=== PATIENT | male | born 1945 | race Caucasian/White ===

== ENCOUNTER 2023-10-31 13:39 | Emergency (ER) | payer MEDICARE, SELFPAY ==
--- NOTE | ~2023-10-31 | CT_ITS ---
EXAMINATION: CT ANGIOGRAM HEAD CT ANGIOGRAM NECK CLINICAL INFORMATION: r sided facial swelling/pain COMPARISON: None. TECHNIQUE: Test bolus sequences followed by intravenous administration 70 mL of Omnipaque 350. Helical imaging was performed in the axial plane from the aortic arch to the skull vertex. Delayed postcontrast imaging of the head was also performed. The data was processed at the mining engineering technologist's workstation for generation of MIP sequences. Angled MIPs and volume rendered reformatted images were also generated at an offline 3D workstation. Stenoses are assessed in accordance with Simms et al. Quantification of Carotid Stenosis on CT Angiography. AJR 2006. 27(1):13-19. This CT examination was performed using dose optimization techniques as appropriate, variously including the following: *Automated exposure control *Adjustment of mA and/or kV according to patient size (this includes techniques or standardized protocols for targeted exams where dose is matched to indication/reason for exam; i.e. extremities or head) *Use of iterative reconstruction technique DLP: 2432 mGy-cm FINDINGS: CT HEAD: The ventricles and sulci are normal in size and configuration without significant volume loss or hydrocephalus. There is no abnormal attenuation within the brain parenchyma. No territorial loss of gomez-white differentiation. No acute intracranial hemorrhage or extra-axial fluid collection. No mass lesion, significant mass effect, or herniation pattern. No pathologic intra-axial enhancement or regional oligemia. Bilateral lens replacements with subluxation of the left-sided lens replacement, which is displaced posteriorly (image 61, series 20). Bilateral scleral jaylin in place. Trace paranasal sinus mucosal thickening with small retention cyst in the right maxillary sinus. Single opacified right mastoid air cell. Canalis basilaris medianus, a benign notochordal remnant. CTA HEAD: No hemodynamically significant stenosis or occlusion in the anterior or posterior circulation. Mild calcific plaque along the bilateral carotid siphons without stenosis. 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 No high flow vascular malformations. Timing of the contrast bolus allows assessment of the major dural venous sinuses, which all opacify normally CTA NECK: Motion artifact significantly limits diagnostic assessment. Classic 3 vessel branching pattern of the aortic arch. Minimal calcific atherosclerotic plaque of the aortic arch. Origins of the great vessels are widely patent. The common carotid arteries are widely patent. Calcific plaque at the carotid bifurcations without stenosis. The internal carotid arteries are widely patent with tortuosity of the mid left cervical ICA. The right vertebral artery is dominant. The right vertebral artery is widely patent, including its origin. There is asymmetric soft tissue thickening along the course of the left vertebral artery from its origin and along the V1 segment with associated mild luminal narrowing, raising the possibility of arterial dissection with intramural hematoma. Focal ectasia with possible anteriorly projecting pseudoaneurysm of the V2 segment at the level of C5, which is not diagnostically assessed due to motion. The remainder of the right vertebral artery is widely patent. CT NECK: Asymmetric enlargement and heterogeneity of the right thyroid gland with multiple nodules versus heterogeneous nodule, measuring approximately 3.5 cm in craniocaudal dimension, for which further evaluation with thyroid ultrasound is advised. Cervical spondylosis. 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 CT/CT angio head neck IMPRESSION: Motion artifact significantly limits diagnostic assessment of the cervical arterial vasculature. 1. No acute intracranial findings. No soft tissue swelling or mass in the right facial soft tissues. 2. No acute arterial occlusion or hemodynamically significant stenosis within the head or neck. 3. Asymmetric soft tissue thickening along the course of the left vertebral artery from its origin and along the V1 segment with associated mild luminal narrowing, raising the possibility of arterial dissection with intramural hematoma. Focal ectasia with possible anteriorly projecting pseudoaneurysm of the V2 segment at the level of C5, which is not diagnostically assessed due to motion. Consider further evaluation with T1-weighted fat-saturated imaging of the neck. This critical result was discussed with BRANDON Suazo at 6:20pm on 10/31/2023 and it was ascertained that the content and urgency of the report was understood at the time of direct communication. 4. 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 5. Bilateral lens replacements with subluxation of the left-sided lens replacement, which is displaced posteriorly (image 61, series 20). 6. Asymmetric enlargement and heterogeneity of the right thyroid gland with multiple nodules versus heterogeneous nodule, measuring approximately 3.5 cm in craniocaudal dimension, for which further evaluation with thyroid ultrasound is advised. Electronically signed by: Emilee Narayan MD 10/31/2023 06:24 PM EDT RP
[2023-10-31 13:51] VITALS: BP 145/102; PULSE 73; RESP 20; TEMP 36.6; O2SAT 99; BMI 34.7
--- NOTE | 2023-10-31 13:51 | ED_ITS ---
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 Patient states that about 1 week ago he noticed a pain behind his right ear that radiates down into his neck. He states that he did start lifting weights and was unsure if he strained muscles in his neck. He states that he went to an urgent care yesterday and was told that this could be the start of an infection or could be a strain of the muscles. He states that he awoke this morning and felt swelling in his right side of his face and decided to come to the emergency room for imaging. He denies any fevers, chills, chest pain, shortness of breath, abdominal pain, nausea, vomiting or diarrhea. No headaches, dizziness or blurred vision. No other complaints or concerns at this time. MD complaint: Neck pain Onset (ago): week(s) Location: neck Radiation: non-radiation Severity: moderate Quality: aching Pain Consistency: constant Relieving factors: none Exacerbating factors: none Associated symptoms: denies other symptoms Treatments prior to arrival: none Related Data Allergies Allergy/AdvReac Type Severity Reaction Status Date / Time Iodinated Contrast Media Allergy Unknown HIVES Verified 10/31/23 13:56 [IV Dye, Iodine Containing] Penicillins Allergy Unknown UNKNOWN Verified 10/31/23 13:56 environmental Allergy Unknown Itchy Eyes Uncoded 10/31/23 13:56 IVP dye Allergy Unknown Hives Uncoded 10/31/23 13:56 penicillin Allergy Unknown Unknown Uncoded 10/31/23 13:56 Review of Systems 2 Review of Systems: Yes all other systems are reviewed and are negative Constitutional: Constitutional: Reports as per [facility] Past Medical History Attestation statement: The following information was validated with the patient. Social History Social History Advance Directives: Yes Advance Directives Information Provided: Yes Advance Directives on File: No Do you have a plan to hurt others: No Plan Physical Exam ED Vital Signs: Vital Signs - 24 hr 10/31/23 13:51 10/31/23 14:00 10/31/23 19:05 Temperature 97.8 F 97.7 F 98.0 F Pulse Rate 73 79 66 Respiratory Rate 20 18 18 Blood Pressure 145/102 H 132/100 H 145/88 H Pulse Oximetry 99 99 Oxygen Delivery Method Room Air Room Air 10/31/23 20:33 Temperature 98.3 F Pulse Rate 66 Respiratory Rate 16 Blood Pressure 145/108 H Pulse Oximetry Oxygen Delivery Method BMI result Body Mass Index 34.7 Const General: cooperative, comfortable and no acute distress Orientation/consciousness: patient oriented x3 Limitations: no limitations HENMT Other: No overlying rashes, no herpetic zoster rashes within the ear canal. TM is intact. Head: Yes normal to inspection, Yes normocephalic and Yes atraumatic Ears: hearing grossly normal bilaterally and TM's normal bilaterally General nose exam: Normal external nose present Face and sinus: Yes normal facial exam Mouth: Normal oral and palatal mucosa present, oropharynx normal and moist mucous membranes Throat: Yes posterior oropharynx normal, Yes tonsils normal and Yes uvula midline Eyes Other: Left eye, with haziness to the entire eye, patient has a history of glaucoma General: appearance normal, both eyes and all related structures Eyelids: Yes eyelids normal Conjunctivae: conjunctivae normal Sclerae: sclerae normal Pupils: Equal, round and reactive pupils present EOM: EOMs intact bilaterally Neck Other: Patient has tenderness to palpation just posterior to the right lobulus auriculae. There is no mastoid tenderness, erythema, fluctuance or warmth. He does have tenderness palpation extending down into his right sternocleidomastoid region. No overlying skin changes or warmth. Neck: Yes normal visual inspection Lymphatic: no lymphadenopathy noted Chest Chest palpation & inspection: normal inspection of the chest Resp Effort & Inspection: normal respiratory effort and able to speak in complete sentences Auscultation: clear to auscultation bilaterally, no crackles, no rales, no rhonchi and no wheezes Cardio Rate: regular rate Rhythm: regular rhythm Heart sounds: S1 normal heart sound present and S2 normal heart sound present GI Inspection: Yes normal to inspection Skin General skin exam: no rashes or lesions noted Trauma: no lacerations or abrasions Wounds: no wounds Neuro General: patient oriented x3 and moves all extremities Cranial nerves: Yes CN's II-XII intact bilaterally and Yes Equal, round and reactive pupils present Cognition (Neuro): normal cognition Gait exam (Neuro): Normal gait present Motor exam (neuro): 5/5 motor strength present throughout and Pronator motor function not present Extrem General: Yes normal to inspection Right upper extremity: normal to inspection Left upper extremity: normal to inspection Right lower extremity: normal to inspection Left lower extremity: normal to inspection Course Course Course Narrative: This is a Rapid Medical Examination (RME) performed by Kerri Marcos PA-C in triage. Full HPI, ROS, assessment and treatment plan per primary provider in the Main ED. 77 yo male here for eval of pain behind right ear, now traveling down right neck x1 wk. evaluated at for this, told he pulled a muscle. woke up today with swelling to right cheek. denies fever/chills, rash. +noted swelling to right cheek. right EAC and TM. no trismus. Plan: basic labs, +/- imaging per primary provider Reevaluation(s) Reevaluation #1: Received phone call from [facility] the CTA of no acute intracranial findings. There is no soft tissue swelling or mass in the right facial soft tissues. There is no acute arterial occlusion or hemodynamically significant stenosis within the head or neck. They did see asymmetric soft tissue thickening along the course of the left vertebral artery from its origin along the V1 segment with association mild luminal narrowing raising the possibility of arterial dissection with intramural hematoma. They considered further evaluation with T1 weighted fat saturated imaging of the neck. 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 There is asymmetric enlargement of the right thyroid gland with multiple nodules. Thyroid ultrasound advised. I discussed these findings with my attending physician, Dr. Sierra in great length. Given patient's symptoms are on the right, the findings on the CTA are incidental findings and there no further additional images or workup needed at this time. He is fully neurologically intact without any deficits. His only symptom he is experiencing is right-sided neck pain, he has no pain in the left side. The treatment for a dissection is anticoagulation which he is already on due to the atrial fibrillation. He is currently on Eliquis. I discussed this in great length with the patient. He understands. Given the right thyroid nodules, I advised patient to also follow-up with his primary care physician for further ultrasound and evaluation. Time: 18:25 Reevaluation #2: Second troponin was negative, discussed workup with patient and at bedside. They understand and agree with plan. All questions answered. Patient stable for discharge Time: 20:39 Consultations Time: 18:25 Medications Administered Discontinued Medications Generic Name Dose Route Start Last Admin Trade Name Trish PRN Reason Stop Dose Admin Diphenhydramine HCl 50 mg 10/31/23 16:20 10/31/23 16:28 Diphenhydramine Hcl 50 Mg/Ml Vial IVPUSH 10/31/23 16:21 50 mg ONCE ONE Administration Sodium Chloride 1,000 mls @ 999 mls/hr 10/31/23 15:43 10/31/23 17:00 Ns IV 10/31/23 16:43 Infused .Q1H1M ONE Infusion Iohexol 100 ml 10/31/23 17:26 10/31/23 17:27 Iohexol 350 Mg/Ml 100 Ml Infus..Btl IV 10/31/23 17:27 70 ml ONCE ONE Administration Methylprednisolone Sodium Succinate 50 mg 10/31/23 16:20 10/31/23 16:27 Methylprednisolone Sod Succ 125 Mg/2 Ml Vial IVPUSH 10/31/23 16:21 50 mg ONCE ONE Administration Medical Decision Making Medical Decision Making MDM Narrative: This is a 77-year-old male, with a history of atrial fibrillation on Eliquis, hypertension, hyperlipidemia, adrenal nodules, and CKD, who presents emergency department with complaints of right-sided neck pain x1 week. On arrival, patient mildly hypertensive at 145/102, all other vital signs within normal limits. He is alert and oriented x4, no neurologic deficits on examination. Physical exam revealing mild tenderness palpation along the right sternocleidomastoid region, as well as behind right ear. He has no symptoms on the left side. He has no headaches, dizziness, blurred vision, chest pain, shortness of breath. Given he is on anticoagulation, dissection is considered, will obtain CTA to rule out dissection versus any other acute pathology. Plan: Labs, EKG, CTA head and neck Differential Diagnosis Differential Diagnoses: The differential diagnosis associated with the presentation includes Dissection, Herpes zoster, mastoiditis-unlikely Admission/Observation Consideration of admission/observation: Escalation of care including admission/observation considered Lab Data MDM Lab Attestation statement: I reviewed the patient's lab results. No leukocytosis, stable H&H, chemistry revealing slight JOSE CARLOS with a creatinine of 1.45, BUN 25, all other labs within normal limits. First troponin 2.7. 10/31/23 14:10 10/31/23 14:10 Labs: Lab Results 10/31/23 10/31/23 10/31/23 Range/Units 14:10 15:49 19:27 WBC 7.3 (4.8-10.8) X10*3/uL RBC 4.44 L (4.60-5.80) X10*6/uL Hgb 14.6 (14.0-18.0) g/dl Hct 43.5 (42.0-52.0) % MCV 98.0 (80.0-98.0) fL MCH 32.9 (27.0-33.0) pg MCHC 33.6 (31.0-36.0) g/dl RDW 12.9 (11.0-16.0) % Plt Count 221 (160-400) X10*3/uL MPV 9.4 (9.4-12.4) fL Immature Gran % (Auto) 0.4 (0.0-0.4) % Neut % (Auto) 63.3 (45-73) % Lymph % (Auto) 26.0 (20-40) % [place]oto % (Auto) 7.0 (2-11) % Eos % (Auto) 2.3 (0-4) % Baso % (Auto) 1.0 (0-2) % Lymph # (Auto) 1.9 (1.2-4.9) X10*3/uL [place] # (Auto) 0.5 (0.1-1.2) X10*3/uL Eos # (Auto) 0.2 (0.0-0.4) X10*3/uL Baso # (Auto) 0.1 (0.0-0.2) X10*3/uL Abs Immat Gran (auto) 0.03 (0.00-0.03) X10*3/uL Absolute Neuts (auto) 4.6 (2.0-8.3) x10*3/uL Absolute Nucleated RBC 0.000 (0.0-0.012) X10*3/uL Nucleated RBC % (auto) 0.0 (0.0-0.2) /100WBC Sodium 143 (135-145) mmol/L Potassium 4.2 (3.3-5.1) mmol/L Chloride 109 H (96-108) mmol/L Carbon Dioxide 25 (22-29) mmol/L Anion Gap 13 (12-20) BUN 25 H (9-16) mg/dL Creatinine 1.45 H (0.5-1.4) mg/dL Estim Creat Clear Calc 51.3 Estimated GFR 47 Random Glucose 97 (60-115) mg/dL Calcium 9.8 (8.4-10.2) mg/dL Total Bilirubin 0.7 (0.0-1.0) mg/dL AST 22 (5-37) U/L ALT 22 (0-40) U/L Alkaline Phosphatase 78 (39-117) U/L Troponin I High Sens < 2.7 < 2.7 (<3.5-35.0) ng/L Total Protein 7.4 (6.5-8.0) g/dL Albumin 4.4 (3.5-5.0) g/dL Influenza Type A (PCR) NEGATIVE (Negative) Influenza Type B (PCR) NEGATIVE (Negative) RSV RNA Qual (PCR) NEGATIVE (Negative) SARS-CoV-2 RNA (RT-PCR) NEGATIVE (Negative) Independent Interpretation I performed an independent interpretation of an: EKG Interpretation: EKG revealing atrial fibrillation at a ventricular rate of 65 beats per minute, QRS duration 148, QT QTC 430/447, no ST elevation or depression. There is evidence of a right bundle-branch block, no previous for comparison. Radiology Impression Discussion of test interpretation with radiology: I have reviewed the radiologist's reading. Radiologist Impression: CT/CT angio head neck IMPRESSION: Motion artifact significantly limits diagnostic assessment of the cervical arterial vasculature. 1. No acute intracranial findings. No soft tissue swelling or mass in the right facial soft tissues. 2. No acute arterial occlusion or hemodynamically significant stenosis within the head or neck. 3. Asymmetric soft tissue thickening along the course of the left vertebral artery from its origin and along the V1 segment with associated mild luminal narrowing, raising the possibility of arterial dissection with intramural hematoma. Focal ectasia with possible anteriorly projecting pseudoaneurysm of the V2 segment at the level of C5, which is not diagnostically assessed due to motion. Consider further evaluation with T1-weighted fat-saturated imaging of the neck. This critical result was discussed with BRANDON Suazo at 6:20pm on 10/31/2023 and it was ascertained that the content and urgency of the report was understood at the time of direct communication. 4. 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 5. Bilateral lens replacements with subluxation of the left-sided lens replacement, which is displaced posteriorly (image 61, series 20). 6. Asymmetric enlargement and heterogeneity of the right thyroid gland with multiple nodules versus heterogeneous nodule, measuring approximately 3.5 cm in craniocaudal dimension, for which further evaluation with thyroid ultrasound is advised. Electronically signed by: Emilee Narayan MD 10/31/2023 06:24 PM EDT RP Dictated By: Emilee Narayan Critical Care Time Critical Care Time Critical Care Time: Yes Total Critical Care Time: 45 Attestation: I have personally provided critical care time exclusive of time spent on separately billable procedures. Time includes review of lab data, radiology results, discussion with consultants, and monitoring for potential decompensation. Intervention performed as documented. Discharge Plan Discharge Clinical Impression: Neck pain, Thyroid nodule, Abnormal CT of the head Patient Disposition: Home, Self-Care Instructions: Thyroid Nodules (ED), Neck Pain (ED) Additional Instructions: You were seen in the emergency department to right-sided neck pain. Your labs were reassuring. You do not have evidence of any acute infection. Your kidney function was slightly elevated, your creatinine was 1.45. We have no previous for comparison. Your EKG shows evidence of atrial fibrillation which you have a history of. You also have a right bundle branch block, we have no EKG for comparison. You do have a thyroid nodule, you need to have follow-up, follow-up with your primary care physician to have a thyroid ultrasound. It is unclear what is causing your symptoms however your workup today was reassuring. Your CT scan showed incidental findings that do not explain your symptoms today. You may have had a dissection on the left, however treatment for this is anticoagulation, you are already on Eliquis therefore no additional things need to be done. You do have a 1.5 mm superiorly projecting extradural aneurysm from the right cavernous ICA. This often times will be monitored through your primary care office. If any new or worsening symptoms occur including but not limited to severe headache, dizziness, changes in vision, chest pain, shortness of breath, please return for re-evaluation. Print Language: Russian
[2023-10-31 14:00] VITALS: BP 132/100; PULSE 79; RESP 18; TEMP 36.5; O2SAT 99
[2023-10-31 14:17] LABS: MANUAL DIFF FLAG NO
[2023-10-31 14:21] LABS: Basophils Absolute Auto 0.1 X10*3/uL (0.0-0.2); Eosinophils Absolute Auto 0.2 X10*3/uL (0.0-0.4); Eosinophils Percent Auto 2.3 % (0-4); Hematocrit 43.5 % (42.0-52.0); Hemoglobin 14.6 g/dl (14.0-18.0); Imm Gran Abs Auto 0.03 X10*3/uL (0.00-0.03); Imm Gran Pct Auto 0.4 % (0.0-0.4); Lymphocytes Absolute Auto 1.9 X10*3/uL (1.2-4.9); Mean Corpuscular HGB Conc 33.6 g/dl (31.0-36.0); Mean Corpuscular Hemoglobin 32.9 pg (27.0-33.0); Mean Platelet Volume 9.4 fL (9.4-12.4); Monocytes Absolute Auto 0.5 X10*3/uL (0.1-1.2); Neutrophils Absolute Auto 4.6 x10*3/uL (2.0-8.3); Neutrophils Percent Auto 63.3 % (45-73); Platelet Count 221 X10*3/uL (160-400); Red Blood Count 4.44 X10*6/uL (4.60-5.80); Red Cell Distribution Width 12.9 % (11.0-16.0); White Blood Count 7.3 X10*3/uL (4.8-10.8)
[2023-10-31 14:44] LABS: Alanine Aminotransferase 22 U/L (0-40); Anion Gap 13 (12-20); Aspartate Amino Transferase 22 U/L (5-37); Bilirubin Total 0.7 mg/dL (0.0-1.0); Blood Urea Nitrogen 25 mg/dL (9-16); Calcium 9.8 mg/dL (8.4-10.2); Carbon Dioxide 25 mmol/L (22-29); Chloride 109 mmol/L (96-108); Creatinine Clr Calc Pharmacy 51.3; Estimated Glomerular Filt Rate 47; Glucose Random 97 mg/dL (60-115); Potassium 4.2 mmol/L (3.3-5.1); Sodium 143 mmol/L (135-145)
[2023-10-31 14:45] LABS: Albumin Level 4.4 g/dL (3.5-5.0); Alkaline Phosphatase 78 U/L (39-117); Total Protein 7.4 g/dL (6.5-8.0)
[2023-10-31 14:55] LABS: Influenza A PCR NEGATIVE (Negative); Influenza B PCR NEGATIVE (Negative); Resp Syncy Virus RNA Qual PCR NEGATIVE (Negative); SARS COV2 PCR INHOUSE NEGATIVE (Negative)
--- NOTE | 2023-10-31 15:42 | ECG_ITS ---
Test Reason : PROVIDER ORDER Blood Pressure : / mmHG Vent. Rate : 065 BPM Atrial Rate : 000 BPM P-R Int : 000 ms QRS Dur : 148 ms QT Int : 430 ms P-R-T Axes : 000 -26 -05 degrees QTc Int : 447 ms Atrial fibrillation Right bundle branch block Inferior infarct , age undetermined Abnormal ECG No previous ECGs available Referred By: Andra Burns Electronically Signed By:JEAN-PIERRE AGRAWAL
[2023-10-31] MEDS: 0.9 % Sodium Chloride 1,000 ML 999 ML IV (16:05)
[2023-10-31 16:24] LABS: Troponin-I High Sensitivity < 2.7 ng/L (<3.5-35.0)
[2023-10-31] MEDS: methylPREDNISolone Sod Succ 125 MG/2 ML VIAL 50 MG IVPUSH (16:27)
[2023-10-31] MEDS: diphenhydrAMINE HCL 50 MG/ML VIAL IVPUSH (16:28)
[2023-10-31] MEDS: iohexoL 350 MG/ML 100 ML INFUS..BTL IV (17:27)
[2023-10-31 19:05] VITALS: BP 145/88; PULSE 66; RESP 18; TEMP 36.7
[2023-10-31 20:07] LABS: Troponin-I High Sensitivity < 2.7 ng/L (<3.5-35.0)
[2023-10-31 20:33] VITALS: BP 145/108; PULSE 66; RESP 16; TEMP 36.8
[2023-10-31 20:46] VITALS: BP 145/108; PULSE 66; RESP 16; TEMP 36.8
== END 2023-10-31 20:46 | disposition home or self-care (01) ==
PROVIDERS: Physician Assistant Medical; Emergency Provider Emergency Medicine; PCP Family Medicine
DX: M54.2 Cervicalgia (principal); E04.1 Nontoxic single thyroid nodule; R93.0 Abnormal findings on diagnostic imaging of skull and head, not elsewhere classified; Z03.818 Encounter for observation for suspected exposure to other biological agents ruled out; I12.9 Hypertensive chronic kidney disease with stage 1 through stage 4 chronic kidney disease, or unspecified chronic kidney disease; N18.9 Chronic kidney disease, unspecified; E78.5 Hyperlipidemia, unspecified; I48.91 Unspecified atrial fibrillation; I45.10 Unspecified right bundle-branch block; Z79.01 Long term (current) use of anticoagulants
CPT/HCPCS: 0241U; 36415; 70496; 70498; 80053; 84484; 85025; 93005; 96361; 96374; 96375; 99284; J1200; J2919; Q9967